=== PATIENT | male | born 1960 | race African-American/Black ===

== ENCOUNTER 2019-07-12 21:58 | Emergency (ER) | payer BC ==
[2019-07-12 22:08] VITALS: BP 171/101; PULSE 84; TEMP 97.8; BMI 27.8
--- NOTE | 2019-07-12 22:08 | PDOC ---
History of Present Illness - General Chief Complaint: Cold Symptoms Stated Complaint: SINUS CONGESTION Time Seen by Provider: 07/12/19 22:05 History Source: Patient Exam Limitations: No Limitations - History of Present Illness Initial Comments: 07/12/19 22:18 This is a 58-year-old male who comes in complaining of nasal congestion left side greater than right times several months. Patient was at a ED a few months ago and was given some nasal spray which she is now out of. Patient otherwise has not taken anything but does have an appointment with an ENT for next week. Patient denies any fevers or chills. Patient denies any pain. Allergies: as per nursing notes Past Medical History: none Social history: Lives with family. No smoking. No alcohol. No illicit drugs. Surgical history: None General: No fevers or chills, no weakness, no weight loss HEENT: No change in vision. No sore throat,. No ear pain + nasal congestion CardioVascular: no chest discomfort. No shortness of breath Respiratory:No cough, or wheezing. Gastrointestinal: no nausea, vomiting, diarrhea or constipation, No rectal bleeding Genitourinary: No dysuria, hematuria, or frequency Musculoskeletal: No joint or muscle pain or swelling Neurologic: No headache, vertigo, dizziness or loss of consciousness Psychiatric: nor depression Skin: No rashes or easy bruising Endocrine: no increased thirst or abnormal weight change Allergic: no skin or latex allergy All other systems reviewed and normal GENERAL: The patient is awake, alert, and fully oriented, in no acute distress. HEAD: Normal with no signs of trauma. Discomfort on percussion and palpation of the frontal or maxillary sinuses. EYES: Pupils equal, round and reactive to light, extraocular movements intact, sclera anicteric, conjunctiva clear. EXTREMITIES:atraumatic, Normal range of motion, no edema. NEUROLOGICAL: Normal speech, normal gait. PSYCH: Normal mood, normal affect. SKIN: Warm, Dry, normal turgor, no rashes or lesions noted. Assessment and plan: I sent a prescription to your pharmacy for some nasal spray take it and use it 1-2 sprays a day in each nose. In addition to that you can get some pseudoephedrine and take that as directed on the box it may make you feel hyper's and have difficult time falling asleep so try not to take it before going to bed. Return to the emergency department immediately with ANY new, persistent or worsening symptoms. Continue any medications as previously prescribed by your physician. You should follow up with your primary doctor as soon as possible regarding today's emergency department visit. . Please make sure your doctor reviews the results of your emergency evaluation. Thank you for coming to the Emergency Department today for your care. It was a pleasure to see you today. Please note that your evaluation is INCOMPLETE until you follow-up with your doctor. Past History - Past Medical History Allergies/Adverse Reactions: Allergies Allergy/AdvReac Type Severity Reaction Status Date / Time No Known Allergies Allergy Verified 03/24/15 12:17 Home Medications: Ambulatory Orders Fluticasone Prop 0.05% Nasal [Flonase -] 1 - 2 spray NS DAILY #1 spray.pump 10/18 COPD: No Hypercholesterolemia: Yes (NO MEDICATIONS) - Suicide/Smoking/Psychosocial Hx Smoking History: Never smoked Hx Alcohol Use: Yes (SOCIAL) Substance Use Type: None *DC/Admit/Observation/Transfer Diagnosis at time of Disposition: Sinus congestion - Discharge Dispostion Disposition: HOME Condition at time of disposition: Stable Decision to Admit order: No - Prescriptions Prescriptions: Fluticasone Prop 0.05% Nasal [Flonase -] 1 - 2 spray NS DAILY #1 spray.pump - Referrals - Patient Instructions Additional Instructions: Get the prescription filled for the nasal spray and use it 1-2 sprays a day in each nose. Keep your appointment with ENT. Return to the emergency department immediately with ANY new, persistent or worsening symptoms. Continue any medications as previously prescribed by your physician. You should follow up with your primary doctor as soon as possible regarding today's emergency department visit. . Please make sure your doctor reviews the results of your emergency evaluation. Thank you for coming to the Emergency Department today for your care. It was a pleasure to see you today. Please note that your evaluation is INCOMPLETE until you follow-up with your doctor. - Post Discharge Activity
== END 2019-07-12 22:23 | disposition home or self-care (01) ==
LOC: FER 21:58
DX: R09.81 Nasal congestion (principal)
CPT/HCPCS: 99281-25

== ENCOUNTER 2019-11-20 14:30 | Emergency (ER) | payer BC ==
[2019-11-20 14:44] VITALS: BP 143/84; PULSE 89; TEMP 98.3; BMI 27.8
[2019-11-20] MEDS ORDERED: IBUPROFEN 600 MG TABLET (FP) PO ONE ×2 (15:20→15:25)
--- NOTE | 2019-11-20 15:25 | PDOC ---
History of Present Illness - General Chief Complaint: Injury Stated Complaint: INJURED RIGHT GREAT TOE Time Seen by Provider: 11/20/19 14:37 History Source: Patient Exam Limitations: No Limitations - History of Present Illness Initial Comments: 11/20/19 15:20 Mr. Fregoso is an otherwise healthy 58-year-old male who presents emergency department with a complaint of right great toe pain. Patient states he was in his usual state of health. He was walking at work on level ground, lost his footing and fell striking his foot. At the time he was wearing slippers. He denies pain in any other portion of his foot but does note pain in his great toe Patient is ambulatory with no difficulty He has not taken any pain medications for his symptom PMH: Denies PSH: Denies Meds: Denies ALL: NKDA Social: Denies drugs, daily alcohol use FH: Noncontributory ROS: GENERAL/CONSTITUTIONAL: No: fever, chills, weakness, loss of appetite. HEAD, EYES, EARS, NOSE AND THROAT: No: change in vision, ear pain, discharge, sore throat, throat swelling. CARDIOVASCULAR: No: chest pain, lightheadedness, palpitations, syncope RESPIRATORY: No: cough, shortness of breath, wheezing, hemoptysis, stridor. GASTROINTESTINAL: No: nausea, vomiting, diarrhea, abdominal cramping, rectal bleeding, constipation. GENITOURINARY: No: dysuria, hematuria, frequency, urgency, flank pain. MUSCULOSKELETAL: Yes: Injury to right great toe no: back pain, neck pain, joint pain, muscle swelling or pain SKIN: No: lesions, pallor, rash or easy bruising. NEUROLOGIC: No: headache, vertigo, paresthesias, weakness ENDOCRINE: No: unexplained weight gain or loss HEMATOLOGIC/LYMPHATIC: No: anemia, easy bleeding, swelling nodes. PE: GENERAL: The patient is in no acute distress. HEAD: Normal with no signs of trauma. EYES: PERRLA, EOMI, sclera anicteric, conjunctiva clear. ENT: Ears normal, nares patent, oropharynx clear without exudates. Moist mucous membranes. NECK: Normal range of motion, supple LUNGS: Breath sounds equal, clear to auscultation bilaterally. No wheezes, and no crackles. HEART:Regular rate and rhythm, normal S1 and S2 without murmur, rub or gallop. ABDOMEN: Soft, nontender, normoactive bowel sounds. EXTREMITIES: Normal range of motion, no edema. 2+ dorsalis pedis, 2+ posterior tibialis Brisk capillary refill Swelling noted of the right great toe Subungual hematoma measuring approximately 20% of the nailbed There is a break of the distal right great toenail with some bleeding noted in the paronychial fold Sensation intact No swelling or tenderness of the Normal range of motion at the ankle There is no pain over the instep or swelling NEUROLOGICAL: Cranial nerves II through XII grossly intact. Normal speech. No focal neurological deficits. MUSCULOSKELETAL: Back non-tender to palpation, no CVA tenderness SKIN: As above Past History - Past Medical History Allergies/Adverse Reactions: Allergies Allergy/AdvReac Type Severity Reaction Status Date / Time No Known Allergies Allergy Verified 03/24/15 12:17 Home Medications: Ambulatory Orders Fluticasone Prop 0.05% Nasal [Flonase -] 1 - 2 spray NS DAILY #1 spray.pump 10/18 Acetaminophen W/ Codeine #3 [Tylenol # 3 -] 1 tab PO BID #6 tablet MDD 2 COPD: No Hypercholesterolemia: Yes (NO MEDICATIONS) Other medical history: SINUS PROBLEMS - Immunization History Immunization Up to Date: No - Psycho Social/Smoking Cessation Hx Smoking History: Never smoked Information on smoking cessation initiated: No Hx Alcohol Use: Yes (social) Drug/Substance Use Hx: No Substance Use Type: None *Physical Exam - Vital Signs Last Vital Signs Temp Pulse Resp BP Pulse Ox 98.3 F 89 16 143/84 97 11/20/19 14:32 11/20/19 14:32 11/20/19 14:32 11/20/19 14:32 11/20/19 14:32 ED Treatment Course - RADIOLOGY Radiology Studies Ordered: Category Date Time Status TOE(S) RIGHT [RAD] Stat Radiology 11/20/19 15:20 Ordered Medical Decision Making - Medical Decision Making 11/20/19 15:23 58-year-old male presenting secondary to injury to his right great toe Patient presents ambulatory to the ER with no difficulty There is evidence of a small subungual hematoma which at this point does not require drainage We will do an x-ray to evaluate for fracture of the tuft We will eliel tape and placed in a hard sole shoe Motrin for pain We will reassess 11/20/19 17:10 X-ray with possible distal tuft fracture Patient eliel tape Placed in hard soled shoe Patient does have a laceration of the distal portion of the toe (not suturable) We will give Boostrix Tylenol 3 for severe pain Motrin during the day Discharge - Discharge Information Problems reviewed: Yes Clinical Impression/Diagnosis: Injury of great toe Qualifiers: Encounter type: initial encounter Laterality: right Qualified Code(s): S99.921A - Unspecified injury of right foot, initial encounter Condition: Stable Disposition: HOME - Admission No - Additional Discharge Information Prescriptions: Acetaminophen W/ Codeine #3 [Tylenol # 3 -] 1 tab PO BID #6 tablet MDD 2 - Follow up/Referral Referrals: Jessica Bryant RN [Primary Care Provider] - Miguel Last DPM [Staff Physician] - - Patient Discharge Instructions Additional Instructions: Mr. Fregoso Thank you for coming into the emergency department today Your x-ray has shown a possible x-ray of the furthest part of the toe Please take Motrin/Tylenol for pain Only at night, and for severe pain, you can take Tylenol #3 Please apply ice and elevate when possible For now while you are having pain, please wear a hard soled shoe Please avoid reinjuring your foot Return to the emergency department immediately with ANY new, persistent or worsening symptoms. Continue any medications as previously prescribed by your physician. You should follow up with your primary doctor as soon as possible regarding today's emergency department visit. Please make sure your doctor reviews the results of your emergency evaluation. Thank you for coming to the [facility] today for your care. It was a pleasure to see you today. Please note that your evaluation is INCOMPLETE until you follow-up with your doctor. - Post Discharge Activity Work/Back to School Note: Back to Work
== END 2019-11-20 17:30 | disposition home or self-care (01) ==
LOC: FER 14:30
PROC: 2W3UXYZ Immobilization of Right Toe using Other Device (ICD-10-PCS; principal; 2019-11-20)
DX: S99.921A Unspecified injury of right foot, initial encounter (principal); W22.01XA Walked into wall, initial encounter; Y93.89 Activity, other specified; Y92.89 Other specified places as the place of occurrence of the external cause; E78.00 Pure hypercholesterolemia, unspecified
CPT/HCPCS: 73660-TC-FY; 99282-25

== ENCOUNTER 2021-08-10 04:22 | Day surgery (SDC) | payer BC ==
[2021-08-06 13:31] VITALS: BMI 29.2
[2021-08-10 08:51] LABS: HEMATOCRIT 41.7 % (35.4-49); HEMOGLOBIN 14.4 GM/dL (11.7-16.9); MCH 31.2 pg (25.7-33.7); MCHC 34.5 g/dl (32.0-35.9); MEAN CELL VOLUME 90.6 fl (80-96); MEAN PLT VOLUME 10.2 fl (7.5-11.1); PLATELET COUNT 160 10^3/uL (134-434); WHITE BLOOD COUNT 6.8 K/mm3 (4.0-10.0)
[2021-08-10 08:57] LABS: INR 1.01 (0.83-1.09); PROTHROMBIN TIME (PATIENT) 12.4 SEC (9.7-13.0)
[2021-08-10 09:00] LABS: ACTIVATED PTT 31.8 SECONDS (25.2-36.5)
[2021-08-10] MEDS ORDERED: DEXMEDETOMIDINE HCL 200 MCG/2 ML IVPB ONE (10:57)
[2021-08-10] MEDS ORDERED: LIDOCAINE HCL 1%, 10 MG/ML (20ML VIAL) ONE (11:07)
[2021-08-10] MEDS ORDERED: BUPIVACAINE HCL/PF 0.5% (5MG/ML) 10 ML VIAL ONE (11:07)
[2021-08-10] MEDS ORDERED: MIDAZOLAM HCL 2 MG/2 ML SINGLE DOSE VIAL ONE (11:25)
[2021-08-10] MEDS ORDERED: ceFAZolin SODIUM 1 GM VIAL IVPB ONE (11:52)
[2021-08-10] MEDS ORDERED: BUPIVACAINE HCL/PF 0.5% (5 MG/ML) 30 ML VIAL IJ ONE ×2 (11:54)
[2021-08-10] MEDS ORDERED: LIDOCAINE HCL 1%, 10 MG/ML (20ML VIAL) NR ONE ×2 (11:54)
[2021-08-10] MEDS ORDERED: KETOROLAC TROMETHAMINE 30 MG/1 ML VIAL ONE (12:44)
[2021-08-10] MEDS ORDERED: BENZOIN/ALOE VERA/STORAX/TOLU 58 ML BOTTLE TP ONE (12:48)
[2021-08-10 15:47] VITALS: BP 138/75; PULSE 81; TEMP 98.2
[2021-08-11] MEDS ORDERED: amLODIPine BESYLATE 5 MG TABLET (FP) PO SCH (10:00)
[2021-08-11] MEDS ORDERED: ATORVASTATIN CA 10 MG TABLET (FP) PO SCH (10:00)
== END 2021-08-10 15:50 | disposition home or self-care (01) ==
LOC: JASU-SURG 04:22
PROVIDERS: ATTEND Surgery
PROC: 0YU50JZ Supplement Right Inguinal Region with Synthetic Substitute, Open Approach (ICD-10-PCS; principal; 2021-08-10 10:00)
DX: K40.90 Unilateral inguinal hernia, without obstruction or gangrene, not specified as recurrent (principal)
CPT/HCPCS: 36415; 85027; 85610; 85730; 93005; 93010; 94760